=== PATIENT | female | born 1980 | race African-American/Black ===

== ENCOUNTER 2017-03-07 07:50 | Emergency (ER) | payer OTHER ==
[~2017-03-07] VITALS: Ht 165.1 cm; Wt 92.5 kg
[~2017-03-07 07:50] MED LIST: CALNTAB; PERC5TAB12 PO
[2017-03-07 07:52] VITALS: BP 135/92; PULSE 66; RESP 24; TEMP 97.8; O2SAT 100
[2017-03-07] MEDS ORDERED: METH4PAK PO (08:06)
--- NOTE | 2017-03-07 08:12 | PD ---
HPI Chief Complaint: Back/ Neck Pain or Injury Time Seen by Provider: 08:11 Travel History International Travel<30 days: No Contact w/Intl Traveler<30days: No Traveled to known affect area: No History of Present Illness HPI 36-year-old female presents emergency Department with complaint of left lateral neck pain 20 minutes after putting her hair up in a ponytail. States the same thing happen about a year ago in which she was given a shot in her but which really helped her neck pain. The pain does radiate down into her left upper shoulder and arm. Denies paresthesias, loss of sensation, decreased range of motion, decreased strength to left upper extremity. Denies fever, vomiting. Denies IV drug use, cancer. Denies chest pain, shortness of breath, or palpitations. Pain is worse with movement of the neck to the left. Took a prednisone pill prior to arrival, thinking it was a muscle relaxer, for symptom management. Symptoms are mild in severity. Has no other medical complaints. No known allergies. No other modifying factors or associated signs and symptoms. PFSH Past Medical History Hx Anticoagulant Therapy: No Cardiovascular Problems: No Chemotherapy: No Cerebrovascular Accident: No Diabetes: No Diminished Hearing: No Respiratory: No ?: Not LMP: per patient she has not had a period in a while : 3 Para: 2 Past Surgical History Hysterectomy: No Social History Alcohol Use: Yes (OCCASIONAL) Tobacco Use: No Substance Use: Yes (MARIJUANA) Allergies-Medications (Allergen,Severity, Reaction): Coded Allergies: No Known Allergies (Unverified , 03/07/17) Reported Meds & Prescriptions Reported Meds & Active Scripts Active Ibuprofen 800 Mg Tab 800 Mg PO Q6HR PRN Robaxin (Methocarbamol) 500 Mg Tab 500 Mg PO QID PRN Reported Methylprednisolone Dosepak (Methylprednisolone) 4 Dspk 4 Mg PO DIRECTED Per Pharmacist Direction Review of Systems Except as stated in HPI: all other systems reviewed are Neg Physical Exam Narrative GENERAL: Well-nourished, well-developed female patient, in no acute distress; afebrile, nontoxic-appearing SKIN: Warm and dry. HEAD: Atraumatic. Normocephalic. EYES: Pupils equal and round. No scleral icterus. No injection or drainage. ENT: Mucosa pink and moist. Airway patent. NECK: Trachea midline. No lymphadenopathy. Active rotation of the neck greater than 45 left and right. No midline point tenderness on palpation of the cervical spine. Reproducible tenderness to the left lateral musculature of the neck and down to the left upper trapezius muscle. No obvious deformities. CARDIOVASCULAR: Regular rate. RESPIRATORY: No accessory muscle use. GASTROINTESTINAL: Rounded. MUSCULOSKELETAL: No obvious deformities. No clubbing. No cyanosis. No edema. Ambulatory with normal gait. BACK: No point tenderness on palpation of thoracic spine. No obvious deformities. NEUROLOGICAL: Awake and alert. Oriented 3. No obvious cranial nerve deficits. Motor grossly within normal limits. Normal speech. Moves all extremities. 5/5 strength to all extremities. Sensory intact. PSYCHIATRIC: Appropriate mood and affect; insight and judgment normal. Data Data Last Documented VS Vital Signs Date Time Temp Pulse Resp B/P Pulse Ox O2 Delivery O2 Flow Rate FiO2 03/07/17 07:52 97.8 66 24 135/92 100 Room Air Orders Orphenadrine Inj (Norflex Inj) (03/07/17 08:15) Ibuprofen (Motrin) (03/07/17 08:15) MDM Medical Decision Making Medical Screen Exam Complete: Yes Emergency Medical Condition: Yes Medical Record Reviewed: Yes Differential Diagnosis Strain and cervical portion of the trapezius muscle, neck muscle spasm, cervical strain, cervical radiculopathy Narrative Course 36-year-old female physical exam consistent with strain of cervical portion of the left trapezius muscle and neck muscle spasm. Denies fever, vomiting. Denies IV drug use or cancer. Patient is afebrile and nontoxic-appearing. No midline tenderness operation of the cervical or thoracic spine. [place] C- Spine Rule suggests the C-Spine can be cleared clinically of fracture, and imaging is not required. There is no midline point tenderness on palpation of the cervical spine. The patient is able to actively rotate the neck 45 left and right. The patient is sitting up in bed at 90. The patient is ambulatory. Norflex and ibuprofen administered in the ER. Ibuprofen and Robaxin prescribed for home. Instructed patient to follow up with primary care provider. Patient verbalizes understanding and agreement with treatment plan. Patient is medically cleared and stable for discharge. Discussed reasons to return to the emergency department. Patient agrees with treatment plan. The patients vital signs are stable and the patient is stable for outpatient follow- up and treatment. Patient discharged home, stable and in no acute distress. Diagnosis Primary Impression: Strain of cervical portion of left trapezius muscle Additional Impression: Neck muscle spasm Referrals: Primary Care Physician Patient Instructions: Cervical Neck Strain Exercises (GEN), Cervical Strain (ED ), General Instructions, Muscle Spasm (ED) Departure Forms: Tests/Procedures, Work Release Enter return to work date: Mar 09, 2017 Additional Instructions: Tylenol or ibuprofen as directed and as needed for pain Robaxin as prescribed and as needed for muscle spasms Heating pad and/or ice to affected area to reduce pain Avoid aggravating activities; increase activity as tolerated Follow-up with primary care provider Return to emergency department immediately with worsening of symptoms Med/Other Pt SpecificInfo: Prescription(s) given Scripts Ibuprofen 800 Mg [id number] Mg PO Q6HR PRN (PAIN) #30 TAB Ref 0 Prov:Yadi Perez 03/07/17 Methocarbamol (Robaxin)500 Mg [id number] Mg PO QID PRN (MUSCLE SPASM) #30 TAB Ref 0 Prov:Yadi Perez 03/07/17 Disposition: 01 DISCHARGE HOME Condition: Stable Yadi Perez Mar 07, 2017 08:12 Yadi Perez Mar 07, 2017 08:12
[2017-03-07] MEDS ORDERED: IBUP800T23 PO (08:14)
[2017-03-07] MEDS ORDERED: ROBA500T PO (08:14)
[2017-03-07] MEDS ORDERED: ORPHENADRINE INJ 60 MG/2 ML AMP IM ONE (08:15)
[2017-03-07] MEDS ORDERED: IBUPROFEN 800 MG TAB PO ONE (08:15)
== END 2017-03-07 08:42 | disposition home or self-care (01) ==
LOC: NEPK 07:50
DX: S16.1XXA Strain of muscle, fascia and tendon at neck level, initial encounter (principal); M62.838 Other muscle spasm; X58.XXXA Exposure to other specified factors, initial encounter
CPT/HCPCS: 96372; 99284; J2360